=== PATIENT | male | born 1985 | race Caucasian/White ===

== ENCOUNTER 2018-11-04 17:43 | Emergency (ER) | payer SELFPAY ==
[~2018-11-04] VITALS: Ht 182.9 cm; Wt 99.8 kg
[2018-11-04 18:01] VITALS: BP 140/93
[2018-11-04] MEDS ORDERED: Isovue-300 100ml vial INJ PRN (18:30)
[2018-11-04] MEDS ORDERED: DiphenhydrAMINE 50mg/ml Inj IVP ONE (18:30)
[2018-11-04] MEDS ORDERED: Ketorolac 30mg Inj IV ONE (18:30)
[2018-11-04 18:48] LABS: BASOPHILS % (AUTO) 0.9 % (0.0-2.0); EOSINOPHILS % (AUTO) 0.6 % (0.0-3.0); HEMATOCRIT 47.6 % (42.0-52.0); HEMOGLOBIN 17.3 G/DL (14.2-18.0); LYMPHOCYTES % (AUTO) 18.7 % (20.0-45.0); MEAN CORPUSCULAR VOLUME 90 FL (80-99); MONOCYTES % (AUTO) 5.5 % (1.0-10.0); NEUTROPHILS % (AUTO) 74.4 % (45.0-75.0); PLATELET COUNT 227 K/UL (150-450); RED CELL DISTRIBUTION WIDTH 9.4 % (11.6-14.8); WHITE BLOOD COUNT 14.8 K/UL (4.8-10.8)
[2018-11-04 18:48] LABS: APPEARANCE,URINE CLEAR; BILIRUBIN, URINE NEGATIVE (NEGATIVE); GLUCOSE, URINE (UA) NEGATIVE (NEGATIVE); KETONES,URINE NEGATIVE (NEGATIVE); LEUKOCYTE ESTERASE ,URINE 1+ (NEGATIVE); NITRITE,URINE NEGATIVE (NEGATIVE); PH,URINE 7 (4.5-8.0); PROTEIN,URINE NEGATIVE (NEGATIVE); UROBILINOGEN,URINE NORMAL MG/DL (0.0-1.0)
[2018-11-04 18:50] LABS: COLOR,URINE YELLOW
[2018-11-04 18:57] LABS: INR 0.9 (0.9-1.1)
[2018-11-04 19:04] LABS: ANION GAP 10 mmol/L (5-15); BLOOD UREA NITROGEN 16 mg/dL (7-18); CALCIUM 9.4 MG/DL (8.5-10.1); CARBON DIOXIDE 27 MMOL/L (21-32); CHLORIDE 103 MMOL/L (98-107); CREATININE 1.3 MG/DL (0.55-1.30); POTASSIUM 3.9 MMOL/L (3.5-5.1); SODIUM 140 MMOL/L (136-145)
[2018-11-04 19:05] VITALS: BP 133/86
[2018-11-04 19:20] LABS: ALANINE AMINOTRANSFERASE 39 U/L (12-78); ALBUMIN 4.5 G/DL (3.4-5.0); ALBUMIN/GLOBULIN RATIO 1.4 (1.0-2.7); ALKALINE PHOSPHATASE 97 U/L (46-116); ASPARTATE AMINO TRANSFERASE 26 U/L (15-37); BILIRUBIN,TOTAL 0.7 MG/DL (0.2-1.0); CKMB 1.2 NG/ML (0.0-3.6); CREATINE KINASE 201 U/L (26-308)
--- NOTE | 2018-11-04 20:33 | Diagnostic Imaging Report ---
Indication: Abdominal pain, left lower quadrant Technique: CT of the abdomen and pelvis utilizing automated exposure control with intravenous contrast. Venous scanning performed. Axial, sagittal and coronal reformats presented. CT dose: Total DLP 828.12 mGycm; CTDI vol 15.03 mGy Comparison: None Findings: Imaged lower chest unremarkable. Gallbladder is contracted likely related to a nonfasting state. There are no CT evident gallstones or pericholecystic inflammatory changes. No biliary duct dilatation. Hepatic contour is smooth. No focal hepatic mass lesions noted on this single phase exam. Portal veins appear patent. Spleen, adrenal glands and pancreas unremarkable. No peripancreatic inflammatory changes or fluid collections. Subcentimeter well-circumscribed low-attenuation lesion in the midpole of the right kidney most likely represents a cyst although it is too small for definitive characterization. Otherwise kidneys enhance symmetrically. There is no urinary tract stone, hydronephrosis or perinephric stranding. Bladder unremarkable allowing for degree of underdistention. Seminal vesicles and prostate unremarkable. There is no free intraperitoneal fluid or air. There is no evidence of small bowel obstruction. Appendix is normal in caliber. No periappendiceal inflammatory changes. No definite inflammatory stranding noted within the mesentery. There is a tiny fat-containing umbilical hernia. There is no pathologically enlarged lymphadenopathy. Abdominal aorta is normal in caliber. There is very mild scoliosis of the thoracolumbar spine. No acute osseous abnormality identified. IMPRESSION: No definite CT evidence of acute intra-abdominal pathology. Incidental findings as above. This corresponds with the preliminary report. The CT scanner at [facility] is accredited by the [employer] and the scans are performed using protocols designed to limit radiation exposure to as low as reasonably achievable to attain images of sufficient resolution adequate for diagnostic evaluation.
--- NOTE | 2018-11-04 20:39 | Emergency Room Report ---
History of Present Illness General Chief Complaint: Abdominal Pain Source: Patient Present Illness HPI 33-year-old male with history of alcohol abuse currently being sober for over a year as well as THC use here complaining of having a very pruritic rash on his abdomen for several weeks and 1 day of 10 out of 10 right-sided abdominal pain. Patient reports that he searched online for causes of his rash and took 3 liver supplements [id number] of unknown origin as he was told by [employer] that it could be liver related. Patient complains of having nausea for several months. Patient reports that he has been smoking marijuana for years. Denies any diarrhea or vomiting. Denies fever and chills or recent travel. Denies any pain radiation. Reports that something is not right and he has a pounding headache. Reports that he has not been able to increase oral hydration. Denies chest pain, shortness of breath, palpitation, urinary frequency, and other associated symptoms. Allergies: Coded Allergies: No Known Allergies (Unverified , 11/04/18) Patient History Past Medical History: see triage record Past Surgical History: unable to obtain Pertinent Family History: none Social History: Reports: drug use - THC Immunizations: UTD Reviewed Nursing Documentation: PMH: Agreed; PSxH: Agreed Nursing Documentation-PMH Past Medical History: No Stated History Review of Systems All Other Systems: negative except mentioned in HPI Physical Exam Vital Signs Date Time Temp Pulse Resp B/P (MAP) Pulse Ox O2 Delivery O2 Flow Rate FiO2 11/04/18 17:57 98.1 98 20 140/93 (109) 97 Room Air Sp02 EP Interpretation: reviewed, normal General Appearance: no apparent distress, alert, GCS 15, non-toxic Head: normocephalic, atraumatic Eyes: bilateral eye normal inspection, bilateral eye PERRL ENT: hearing grossly normal, normal pharynx, no angioedema, normal voice Neck: full range of motion, no carotid bruits, supple/symm/no masses Respiratory: chest non-tender, lungs clear, normal breath sounds, no rhonchi, no wheezing, speaking full sentences Cardiovascular #1: regular rate, rhythm, no edema, no murmur, normal capillary refill Gastrointestinal: no mass, no organomegaly, no peritonitis, no bruit, no guarding, no hernia, no pulsatile mass, no rebound, other - Negative Barnhart's negative McBurney's negative Rovsing's Genitourinary: no CVA tenderness Musculoskeletal: back normal, gait/station normal, normal range of motion, non- tender, no calf tenderness Neurologic: alert, oriented x3, responsive, motor strength/tone normal, sensory intact, speech normal Psychiatric: judgement/insight normal, memory normal, mood/affect normal, no suicidal/homicidal ideation Skin: rash - Scabies rash noted on abdomen diffuse without erythematous base, pimple-like and pinpoint formation macular Lymphatic: no adenopathy Medical Decision Making PA Attestation Diagnosis and treatment plans were reviewed and discussed with my supervising physician Dr. Hollingsworth Diagnostic Impression: Primary Impression: Fatty liver Additional Impressions: Tetrahydrocannabinol (THC) use disorder, mild, abuse Scabies ER Course 33-year-old male with history of alcohol abuse currently being sober for over a year as well as THC use here complaining of having a very pruritic rash on his abdomen for several weeks and 1 day of 10 out of 10 right-sided abdominal pain. Patient reports that he searched online for causes of his rash and took 3 liver supplements [id number] of unknown origin as he was told by [employer] that it could be liver related. Patient complains of having nausea for several months. Patient reports that he has been smoking marijuana for years. Denies any diarrhea or vomiting. Denies fever and chills or recent travel. Denies any pain radiation. Reports that something is not right and he has a pounding headache. Reports that he has not been able to increase oral hydration. Denies chest pain, shortness of breath, palpitation, urinary frequency, and other associated symptoms. Ddx considered but are not limited to: appendicitis, cholecystis, gastritis, gastroenteritis, UTI, pyelonephritis, SBO, diverticulitis, i fatty liver, liver cirrhosis, Vital signs: are WNL, pt. is afebrile H&PE are most consistent with: Fatty liver, THC use, scabies ORDERS: abdominal CT, abdominal pain set, EKG, abdominal US, ibuprofen, permethrin, NS bolus, Zofran, Benadryl ED INTERVENTIONS: NS bolus, Benadryl, Zofran DISCHARGE: At this time pt. is stable for d/c to home. Will provide printed patient care instructions, and any necessary prescriptions. Care plan and follow up instructions have been discussed with the patient prior to discharge. Follow-up with primary care provider I gave him a list contact take medication as directed at this time I highly advised him to stop taking the unknown liver supplements as we are not familiar with the side effects however no sign of toxicity was noted. Also advised the patient to have liver enzymes repeated in 48 hours due to possible toxicity secondary to liver supplements that he took. EKG Diagnostic Results Rate: normal Rhythm: NSR ST Segments: no acute changes CT/MRI/US Diagnostic Results CT/MRI/US Diagnostic Results #1: Imaging Test Ordered: Abdominal CT with contrast Impression CT ABDOMEN & PELVIS With Contrast: COMPARISON: US 11/04/2018 Subcentimeter focus of hypoattenuation in the right kidney is too small to characterize. No hydronephrosis. Bowel is nondilated. No free fluid, free air, diverticulitis, or appendicitis. Spleen, gallbladder, pancreas, liver, and left kidney are unremarkable. CT/MRI/US Diagnostic Results #2: Imaging Test Ordered: abd US Impression WNL, no hepatomegaly Last Vital Signs Date Time Temp Pulse Resp B/P (MAP) Pulse Ox O2 Delivery O2 Flow Rate FiO2 11/04/18 19:05 98.4 81 21 133/86 100 Room Air Disposition: HOME, SELF-CARE Condition: Stable Scripts Ibuprofen (Ibu) 800 Mg Tablet 800 MG PO TID, #30 TAB Prov: Clark Matthew 11/04/18 Ondansetron (Zofran) 4 Mg Tablet 4 MG ORAL Q6H PRN for Nausea & Vomiting, #12 TAB Prov: Clark Matthew 11/04/18 Permethrin* (ELIMITE*) 60 Gm Cream..g. 1 APPLIC TOPIC ONCE, #60 GM 0 Refills Apply cream from head to toe; leave on for 8-14 hours before washing off with water; may reapply in 1 week if live mites appear. Prov: Clark Matthew 11/04/18 Referrals: NOT CHOSEN IPA/,REFERRING (PCP) Patient Instructions: Abdominal Pain, Adult, Cannabis Use Disorder, Scabies, Pediatric Additional Instructions: Take medication as directed follow-up with your primary care provider if worsening symptoms return to the emergency room avoid using the liver supplements Clark Matthew Nov 04, 2018 20:39
[2018-11-04] MEDS ORDERED: PERMETHRIN60 GM TOPIC (20:41)
[2018-11-04] MEDS ORDERED: ZOFRAN4 M1 ORAL (20:41)
[2018-11-04] MEDS ORDERED: IBU800 MG PO (20:50)
[2018-11-04 21:06] VITALS: BP 122/0
--- NOTE | 2018-11-05 09:30 | Diagnostic Imaging Report ---
Indication: Abdominal pain, right upper quadrant Technique: A plantar grayscale and duplex Doppler imaging of the abdomen Comparison: None Findings: Imaged portions of the aorta are normal in caliber. Pancreas is poorly evaluated due to overlying bowel gas. Liver demonstrates mildly increased echogenicity. No discrete hepatic mass lesion is appreciated sonographically. Hepatic contour appears smooth. Liver is normal in size. Imaged hepatic veins appear patent. The main portal vein appears patent. The gallbladder appears contracted. Apparent thickening of the gallbladder wall likely related to gallbladder contraction. No gallstones or gallbladder sludge identified. Sonographic Barnhart sign reported as negative. No intrahepatic or extra hepatic biliary ductal dilatation. The common bile duct measures 1.9 mm in diameter. Kidneys demonstrate normal echogenicity. There is no hydronephrosis or sonographically appreciable stone. Spleen is normal in size. No ascites is demonstrated. IMPRESSION: Contracted gallbladder, likely related to a nonfasting state. Apparent gallbladder wall thickening likely related to gallbladder contraction. No gallstones or gallbladder sludge identified. Sonographic Barnhart sign reported as negative. No biliary ductal dilatation. Diffusely increased hepatic echogenicity, most commonly related to hepatic steatosis. Additional hepatocellular diseases need to be excluded clinically.
== END 2018-11-04 21:13 | disposition home or self-care (01) ==
LOC: EMR 18:22
DX: B86 Scabies (principal); F12.10 Cannabis abuse, uncomplicated; K76.0 Fatty (change of) liver, not elsewhere classified
CPT/HCPCS: 36415; 74177; 76700; 80053; 80307; 81003; 82550; 82553; 83690; 84484; 85025; 85610; 85730; 86850; 86900; 86901; 93005; 96374; 96375; 99284; G0480; J1200; J1885; J2405; Q9967; 80329